=== PATIENT | female | born 2000 | race Caucasian/White ===

== ENCOUNTER 2022-09-12 14:28 | Emergency (ER) | payer OTHER ==
[2022-09-12] MEDS ORDERED: Acetaminophen 500 MG TAB ONE (15:35)
[2022-09-12] MEDS ORDERED: Ibuprofen 200 MG TAB ONE (15:36)
== END 2022-09-12 16:35 | disposition home or self-care (01) ==
LOC: CSHERS 14:28
DX: S13.4XXA Sprain of ligaments of cervical spine, initial encounter (principal); M25.512 Pain in left shoulder; M25.562 Pain in left knee; F17.290 Nicotine dependence, other tobacco product, uncomplicated; V89.2XXA Person injured in unspecified motor-vehicle accident, traffic, initial encounter